=== PATIENT | female | born 1970 | race Caucasian/White ===

== ENCOUNTER 2023-10-10 09:57 | Emergency (ER) | payer OTHER, SELFPAY ==
[2023-10-10 10:01] VITALS: BP 131/87
[2023-10-10 11:24] LABS: % Basophils 0.5 % (0-2); % Eosinophils 0.3 % (0-6); % Immature Granulocytes 0.2 % (0-0.5); % Lymphocytes 17.2 % (20.5-51.1); % Monocytes 8.9 % (1.7-9.3); % Neutrophils 72.9 % (42.2-75.2); Absolute Lymphocytes 1.1 10^3/uL (1.2-3.4); Absolute Monocytes 0.6 10^3/uL (0.1-0.6); Absolute Neutrophils 4.7 10^3/uL (1.4-6.5); Hemoglobin 12.5 g/dL (12.0-16.0); Mean Corp Hgb Conc. 34.7 g/dL (33.0-37.0); Mean Corpuscular Hgb 30.7 pg (27.0-31.0); Mean Corpuscular Volume 88.5 fL (81.0-99.0); Mean Platelet Volume 10.5 fL (7.4-10.4); Nucleated Red Blood Cells % 0 %; Platelet Count 209 10^3/uL (130-400); Red Blood Cell Count 4.07 10^6/uL (4.20-5.40); Red Cell Dist. Width 12.5 % (11.5-14.5); White Blood Cell Count 6.4 10^3/uL (4.8-10.8)
[2023-10-10] MEDS: NSS 1000 IV (11:34)
[2023-10-10] MEDS: OMNIPAQUE 50 ML PO (11:35)
[2023-10-10] MEDS: REGLAN 10 MG IV (11:35)
[2023-10-10] MEDS: BENADRYL 25 MG IV (11:35)
[2023-10-10 11:40] VITALS: BP 130/77; BMI 27.6
[2023-10-10 11:40] LABS: Blood Urea Nitrogen 9 mg/dl (7-17); Calcium 9.4 mg/dl (8.4-10.2); Carbon Dioxide 27 mmol/L (22-30); Chloride 103 mmol/L (98-107); Glucose 92 mg/dl (70-99); Lipase 32 U/L (23-300); Sodium 136 mmol/L (135-145); eGFR > 60.00
--- NOTE | 2023-10-10 13:59 | ED.GENMED ---
History of Present Illness
General
Chief Complaint: Abdominal Pain
Source: patient
Exam Limitations: none
Time Seen by Provider: 10/10/23 10:17
Nursing documentation reviewed up to this point in time: agreed with
Travel History
Have you had any contact with someone who has COVID-19?: No
Do you have any symptoms of coronavirus? Fever > 100 degrees, chills, cough, shortness of breath, sore throat, loss of taste or smell, muscle aches, or headache?: No
History of Present Illness
History of Present Illness:
53-year-old female presenting to the emergency department today with concerns of abdominal bloating distention diarrhea worsening over the past few days similar episode in the past when she was diagnosed with C. difficile. Also has had a headache
today. Has had some vague abdominal symptoms over the past month including intermittent cramping.
Past History
Past History
ED Past Medical History: Other (Lupus, UTI'S)
ED Past Surgical History: Other (Breast augmentation)
Social History
Tobacco: Non-smoker
Personal:
Living: with family
Employment: Not employed
Review of Systems
Review of Systems
Allergies reviewed?: Yes
All Other Systems: ROS reviewed and negative except as documented in HPI and ROS
Phy Exam
Physical Exam
Physical Exam:
GENERAL: Alert , in no apparent distress
EYE: pupils equal and reactive
NECK: Supple, no significant adenopathy.
ENT: o/p clr, mmm.
CARDIAC: Regular rate and rhythm .
LUNGS: Clear breath sounds bilaterally, no acute respiratory distress, no wheezes/rales/rhonchi
ABDOMEN: Diffuse vague abdominal pain otherwise no focal discomfort no rigidity.
NEUROLOGICAL: Alert and oriented, no focal neuro deficits
SKIN: Warm and dry, skin intact.
MUSCULOSKELETAL: No edema, well perfused.
PSYCH: Normal and appropriate interaction.
Course
Orders/Labs/Results
Orders:
Orders
10/10/23 11:00
0.9% Sodium Chloride 1000 ml [Nss] 1,000 ml IV BOLUS
Diphenhydramine [Benadryl] 25 mg IV NOW STA
Iohexol [Omnipaque] See Protocol PO NOW STA
Metoclopramide [Reglan] 10 mg IV NOW STA
10/10/23 11:01
CT Abd/pel W Iv And Oral Contr Urgent
Comment:
Reason For Exam: abd pain hx cdiff
10/10/23 11:14
Basic Metabolic Panel Urgent
Complete Blood Count/With Diff Urgent
Lactic Acid Urgent
Lipase Urgent
10/10/23 15:27
Urinalysis Reflex To Culture Urgent
Date Specimen was Collected: 10/10/23
Time Specimen was Collected: 14:45
C difficile Antigen & Toxins Urgent
MARIELENA Source: Feces/Stool
Specimen Description:
Date Specimen was Collected: 10/10/23
Time Specimen was Collected: 14:44
Stool Culture Urgent
MARIELENA Source: Feces/Stool
Specimen Description:
Date Specimen was Collected: 10/10/23
Time Specimen was Collected: 14:45
Abnormal Lab Results
10/10/23
11:14
RBC 4.07 L 10^6/uL
(4.20-5.40)
Hct 36.0 L %
(37.0-47.0)
MPV 10.5 H fL
(7.4-10.4)
Absolute Lymphs (auto) 1.1 L 10^3/uL
(1.2-3.4)
Lymphocytes % 17.2 L %
(20.5-51.1)
10/10/23 11:14
10/10/23 11:14
Vital Signs
Initial and Last Documented VS:
Initial Vital Signs
Temp Pulse Resp BP Pulse Ox
99.3 F 103 20 131/87 100
10/10/23 10:01 10/10/23 10:01 10/10/23 10:01 10/10/23 10:01 10/10/23 10:01
Last Documented Vital Signs
Temp Pulse Resp BP Pulse Ox
99.3 F 84 19 120/70 100
10/10/23 10:01 10/10/23 15:38 10/10/23 15:38 10/10/23 15:38 10/10/23 15:38
MDM/Problems Addressed
MDM/Problems Addressed:
52-year-old male presenting to the emergency department today with concerns of ongoing intermittent abdominal pain and bloating worsening over the past few days history of C. difficile. Upon arrival here mildly tachycardic but improving after
receiving fluids. Does have some vague abdominal pain to palpation. Labs without significant white count chemistry without emergent findings. CT scan showing colitis but no significant emergent findings. Unclear specific cause advised close GI
follow-up and stool cultures were sent with possibility of treatment for C. difficile moving forward but stable at this point for outpatient management pending cultures.
*Critical Care Note
Total Time (30-74mins, 75-104mins- exclusive of procedures): Not Applicable
ED Attending Note
-
Portions of this chart may have been created with voice recognition software.� Occasional wrong word or��sound alike� substitutions may have occurred due to the inherent limitations of voice recognition software.
Discharge Plan
Departure
Patient Disposition: Home (Routine Discharge)
Date of Disposition: 10/10/23
Time of Disposition: 15:43
Patient with high blood pressure during this ER visit?: No
Condition: Good
Covid-19: Not Applicable
Discharge Problem:
Colitis
Instructions: Colitis (DC)
Prescriptions:
New
ondansetron 4 mg tablet,disintegrating
4 mg PO Q6H PRN (Reason: nausea and vomiting) Qty: 7 0RF
dicyclomine 10 mg capsule
10 mg PO QID PRN (Reason: abdominal pain) Qty: 10 0RF
No Action
nitrofurantoin macrocrystal 50 MG capsule
100 mg PO BID
tramadol 50 MG tablet
50 mg PO BID PRN (Reason: Pain) Qty: 20 0RF
ondansetron 4 MG tablet,disintegrating
4 mg PO TIDPRN PRN (Reason: nausea/vomiting) Qty: 14 0RF
albuterol sulfate [ProAir HFA] 90 mcg/actuation Hfa Aerosol Inhaler
1 puff INHALATION Q4HPRN PRN (Reason: shortness of breath) Qty: 8.5 0RF
diclofenac potassium 50 mg tablet
50 mg PO BID Qty: 20 0RF
Flovent Diskus 100 mcg/actuation blister with device
1 inh inhalation BID Qty: 60 0RF
Referrals:
Lopez Diaz MD [Family Provider] -
Activity Restrictions/Additional Instructions:
You came to the emergency department today with concerns of abdominal discomfort. You are found to have colitis. We will contact you about your culture results otherwise please follow-up closely with GI and primary care doctor. Return to the
emergency department any worsening, new or concerning symptoms.
Interventions
Interventions:
*ED COVID-19 Vaccine History Last Done: 10/10/23 10:01
AV-Nlrwbp-Ivefbmyefx Assessment Last Done: 10/10/23 12:24
Discharge Date and Time
Print Language: OCCITAN
[2023-10-10 15:38] VITALS: BP 120/70
[2023-10-10 15:40] LABS: Urine Albumin Negative (Neg - Trace); Urine Bilirubin Negative (Negative); Urine Character Clear (Clear); Urine Color Yellow; Urine Glucose Negative (Negative); Urine Ketone Negative (Negative); Urine Leukocyte Trace (Negative); Urine Nitrite Negative (Negative); Urine Occult Blood 1+ (Negative); Urine Specific Gravity 1.005 (<1.030); Urine Urobilinogen Negative (Neg - 1+); Urine pH 6.5 (5.0-9.0)
[2023-10-10 15:54] LABS: Urine Squamous Cell >30 /LPF (Few)
[2023-10-10 15:55] LABS: Urine White Cell None Seen /HPF (0-5)
== END 2023-10-10 15:54 | disposition home or self-care (01) ==
LOC: EMR 09:57
PROVIDERS: Physician Assistant; EMERGENCY PHYSICIAN Emergency Medicine; FAMILY PHYSICIAN Family Medicine
DX: K52.9 Noninfective gastroenteritis and colitis, unspecified (principal); Z87.440 Personal history of urinary (tract) infections
CPT/HCPCS: 99284; 96374; 96375; 96361; 74177; 80048; 81003; 81015; 83605; 83690; 85025; 87045; 87046; 87324; 87427; 87449; Q9967

== ENCOUNTER → 2024-01-11 11:09 | Outpatient (REF) | payer OTHER, SELFPAY | LOC: HWWDC 11:09 | PROVIDERS: ATTENDING PHYSICIAN Obstetrics & Gynecology Gynecology; FAMILY PHYSICIAN Physician Assistant Medical | DX: Z12.31 Encounter for screening mammogram for malignant neoplasm of breast (principal) | CPT/HCPCS: 77063; 77067 ==

== ENCOUNTER → 2024-12-29 15:03 | Outpatient (REF) | payer OTHER, SELFPAY | LOC: HWRAD 15:03 | PROVIDERS: ATTENDING PHYSICIAN Physician Assistant Medical | DX: E04.1 Nontoxic single thyroid nodule (principal) | CPT/HCPCS: 76536 ==

== ENCOUNTER → 2025-05-25 12:55 | Outpatient (REF) | payer OTHER, SELFPAY | LOC: WDC 12:55 | PROVIDERS: ATTENDING PHYSICIAN Obstetrics & Gynecology; FAMILY PHYSICIAN Physician Assistant Medical | DX: Z12.31 Encounter for screening mammogram for malignant neoplasm of breast (principal) | CPT/HCPCS: 77063; 77067 ==